=== PATIENT | male | born 1945 | race Caucasian/White ===

== ENCOUNTER 2016-09-02 07:54 | Day surgery (SDC) | payer OTHER ==
--- NOTE | 2016-08-29 08:52 | PCM.ANEPRE ---
Anesthesia Pre-Op Review Reason for Review: SURGEON'S REQUEST-REVIEW CLEARANCES Anesthesia Recommendations: Proceed with Procedure Additional Comments 70 YO Male, 50PY smoking HX quit last year with COPD, REBEKAH on CPAP, Asthma, HTN & Hx of non ST elevation MA in 2014 with Stable CLL. Cleared by Cardiology AND Pulmonology for Surgery. Of Note: 1) Patient does take inhalers for Asthma. Golf Caddy states low to moderate risk for surgery from pulmonary complications. 2) Nurse Educator states Low Cardiac Risk for Surgery 2014: Echo EF = 65% with Trace Aortic and Tricuspid Regurgitation. Kain Sampson MD Aug 29, 2016 08:52
--- NOTE | 2016-08-29 10:45 | PCM.HPSURG ---
Subjective Date of Service: Aug 18, 2016 Referring Provider: Admitting Physician: Primary Care Physician: Other,Physician Attending Physician: Arnaldo Monreal MD Chief Complaint SEE BELOW History of Present Illness Patient: Memo Simeon Date of : 1945 Visit Type: Pre Op Visit Date: 08/18/2016 10:45 AM This 70 year old male presents for Preop Right L4-5 Part Hemilami+Lasha. Lat. Decompression. History of Present Illness: 1. Preop Right L4-5 Part Hemilami+Lasha. Lat. Decompression Memo Simeon is a 70 year old male who presents today's date 08/18/2016 for a preoperative type of appointment concerning the decision for surgery involving minimally invasive surgery involving approach from the right with L4-5 partial hemilaminectomy & bilateral lateral recess decompression secondary to a diagnosis of lumbar spinal stenosis with neurogenic claudication with related complaints of severe, intractable, and debilitating lower back pain radiating to the right lower extremity worse with standing up straight or walking & improved with leaning forward or sitting down. This patient was last evaluated by Dr. Arnaldo Monreal M.D. on June 04, 2016 documenting a four-year history of neurogenic claudication. The patient reports that for years ago while for long distances. His walking is now limited to 2 blocks. As he walks a progression of low back pain and radiating pain into the right lateral leg to the knee in an L5 distribution. The pain becomes intolerable after 2 blocks and that eases up over 5-10 minutes was sitting. He is morbidly obese, has a BMI of 38 and has constant low back pain even when he is sitting. An MRI scan lumbar spine shows severe canal stenosis at the L4-5 level. The patient also reports increased back pain associated with lying flat on his back that eases up if he can turn on his side and flex the lumbar spine. He also obtained relief leaning forward counter, or leaning forward on a shopping cart supermarket. This patient has classic symptoms of neurogenic claudication. According to Dr. Monreal the patient has symptomatic lumbar spinal pathology indicating minimally invasive lumbar spinal decompression surgery. We discussed the risks and benefits associated with the procedure as well as reasonable expectations with regards to surgical outcomes & the patient elected to proceed with surgery as planned. The patient denies any complete or acute loss of control of bowel or bladder function, saddle paresthesia or anesthesia, difficulty with ambulation, balance , coordination, fine motor manipulation or unsteadiness of gate. The patient has a pertinent positive past medical, surgical and social history for right total hip arthroplasty, balloon angioplasty ([employer] Worker unknown), hypertension, morbid obesity, obstructive sleep apnea (sleep study still pending ), coronary artery disease, chronic lymphocytic leukemia (reported in remission) , COPD (Dr. [employer]), nocturia, & possible PTSD (). The patient's related complaints have been a serious detriment to their happiness and activities of daily living. Having failed conservative treatment the patient presents today for their decision for surgery appointment involving minimally invasive surgery involving approach from the right with L4-5 partial hemilaminectomy & bilateral lateral recess decompression for treatment of lumbar spinal stenosis with neurogenic claudication; related to severe, intractable, and debilitating lower back pain radiating to the right lower extremity worse with standing up straight or walking & improved with leaning forward or sitting down. The procedure is scheduled to be performed by Dr. Arnaldo Monreal M.D. on 09/02/2016. ANESTHESIA NOTE: We have requested an anesthesia consultation with regards to the patient's multiple comorbidities requesting review of Cardiologists & Primary Care Provider medical clearance documentation for surgery. We will also have to notify the hospital staff that the patient has a BMI of 38 & is 314 pounds therefore we will have to plan for appropriate equipment accordingly. PHYSICAL EXAM: This is a well developed, well nourished, morbidly obese male who is alert, cooperative, and appears to be in no acute distress with language and speech that is intact and fluent. There is no evidence of recent or remote memory impairment. The patient's knowledge is appropriate for age and level of education with a pleasant affect & euthymic mood. The patient ambulates with mild difficulty & hunched forward gait. Exam of the head is normocephalic. PERRL, EOMI, without facial droop, hearing grossly intact, nostrils patent, oral cavity and pharynx normal. Exam of the neck supple, without lymphadenopathy or thyromegaly. Exam or the heart reveals regular rate and rhythm without audible murmurs The lungs are clear to auscultation bilaterally The abdomen is non- tender and non-distended Exam of the cervical spine reveals that the skin is grossly intact and without gross deformity, or asymmetry of spinal muscles, full range of motion causing no pain or tenderness to palpation. Negative Spurling, negative L'hermitte's and negative distraction. Tone: Intact in the upper and lower extremities. Exam of the right upper extremity reveals that the skin is grossly intact with no significant deformity or joint abnormality. Strength in the deltoids, biceps , triceps, wrist extensors, wrist flexors, and intrinsic is rated 5/5. There is normal gross sensation to pinprick & light touch. Radial pulse is intact. Tinel's & Phalen's are negative with no tenderness over cubital tunnel. DTRs: Biceps 2 +, triceps 2 +, brachioradialis 2 +. Exam of the left upper extremity reveals that the skin is grossly intact with no significant deformity or joint abnormality. Strength in the deltoids, biceps , triceps, wrist extensors, wrist flexors, and intrinsic is rated 5/5. There is normal gross sensation to pinprick & light touch. Radial pulse is intact. Tinel's & Phalen's are negative with no tenderness over cubital tunnel. DTRs: Biceps 2 +, triceps 2 +, brachioradialis 2 +. Exam of the thoracic and lumbar spine reveals the skin is grossly intact without gross deformity, or asymmetry of spinal muscles, decreased range of motion causing significant pain worse with extension & positive inferior lumbar bilateral paraspinal tenderness to palpation without muscular fasciculations appreciated. Exam of the right lower extremity reveals right YOSELIN scar healed no significant deformity or joint abnormality. Strength in the hip flexors, quadriceps, gastrocnemius, tibialis anterior, and extensor hallucis longus is rated 5/5. There is normal gross sensation to pinprick & light touch. There is no edema. Peripheral pulses are intact. No obvious varicosities. Negative straight leg raise and negative Fabers/Patricks. DTRs: Patellar 0, cross adductor 2 +, & achillies 2 +. Exam of the left lower extremity reveals that the skin is grossly intact with no significant deformity or joint abnormality. Strength in the hip flexors, quadriceps, gastrocnemius, tibialis anterior, and extensor hallucis longus is rated 5/5. There is normal gross sensation to pinprick & light touch. There is no edema. Peripheral pulses are intact. No obvious varicosities. Negative straight leg raise and negative Fabers/Patricks. DTRs: Patellar 0, cross adductor 2 +, & achillies 2 +. CNII-XII, mupqoa-ma-wgso, qwhy-pv-cfmd & rapid alternating movements in the upper & lower extremities is grossly intact. There is negative Romberg's, bilateral jarred's, clonus, and babinski's. Medical/Surgical/Interim History Reviewed, no change. Last detailed document date:08/18/2016. Family History: Reviewed, no changes. Last detailed document date:08/18/2016. Social History (Reviewed, updated) 08/18/2016 Tobacco use reviewed. Preferred language is Dutch. The patient does not need an sample carrier. Smoking status: Former smoker. Smoking Status Use Status Type Smoking Status Years Used Total Pack Years no/never Former smoker CAFFEINE The patient uses caffeine: coffee - 2 cups a day. Allergies: Ingredient Reaction Medication Name Comment NO KNOWN ALLERGIES Reviewed, no changes. Review of Systems System Neg/Pos Details Positive Nocturia. Respiratory Positive Dyspnea. MS Positive Back pain, Myalgia. Psych Negative Anxiety and depression. Endocrine Negative Weight gain and weight loss. ENMT Negative Hearing loss. Cardio Negative Chest pain, irregular heartbeat/palpitations, leg swelling and pacemaker. GI Negative Abdominal pain, constipation, diarrhea, nausea and vomiting. MS Negative Bone/joint symptoms and muscle weakness. Constitutional Negative Chills and fever. Jeyson/Lymph Negative Blood clots. Respiratory Negative Apnea and wheezing. Eyes Negative Double vision and vision loss. Negative Dysuria, urge incontinence and urinary incontinence. Integumentary Negative Mrsa and rash. Neuro Negative Dizziness, headache and seizures. Vital Signs Height Time ft in cm Last Measured Height Position % 10:21 AM 6.0 4.00 193.04 06/23/2016 Weight/BSA/BMI Time lb oz kg Context % BMI kg/m2 BSA m2 10:21 AM 306.40 138.981 dressed with shoes 37.30 2.73 Blood Pressure Time BP mm/Hg Position Side Site Method Cuff Size 10:21 AM 142/92 sitting left wrist automatic adult Temperature/Pulse/Respiration Time Temp F Temp C Temp Site Pulse/min Pattern Resp/ min 10:21 AM 97.4 36.3 100 regular Pain Scale Time Pain Score Method 10:21 AM 5/10 Numeric Pain Intensity Scale Measured By Time Measured by 10:21 AM Gena Trujillo MA Screening Summary:o The following were reviewed: tobacco use, alcohol use and caffeine use Assessment/Plan # Detail Type Description 1. Assessment Lumbar stenosis with neurogenic claudication (M48.06). 2. Assessment Preoperative examination (Z01.818). Patient Plan We including your Attending Surgeon have discussed the risks and benefits associated your scheduled procedure which you have verbally acknowledged understanding including but not limited to the possibility of an outcome that we are unable to predict or was not mentioned. 1. You are scheduled for a minimally invasive surgery involving a portion the right with L4-5 partial hemilaminectomy & bilateral lateral recess decompression with Dr. Arnaldo Monreal M.D. at [facility] on 2016. 2. Check in time is 9 AM. Also please ignore instructions below if told otherwise by your preadmission nurse or if you do not take the medications listed below. 3. Nothing to eat after midnight the night before surgery. You may take all of your "approved" medications with small sips of water. Remember to take your a.m. hypertension medication if it is a beta yobany and ends in "olol. Otherwise ask your doctor if you need to hold your a.m. hypertension medication. 4. No aspirin, ibuprofen, Naprosyn, or other NSAIDs starting 7 days prior to surgery. 5. Please stop Warfarin/Coumadin or other blood thinners such as Plavix, Aggrenox, or Xarelto 7 days prior to your surgical procedure and follow specific instructions from your prescribing provider. 6. Please stop Lovenox bridging in the morning one day prior to procedure. 7. Please stop Suboxone/Buprenorphine at least 4 days prior to procedure. 8. Go to the hospital today to get her preoperative testing done. Take the order form to the surgery desk on the second floor of the [facility] (main entrance next to the emergency entrance). I will notify you if there is any test results that require further workup prior to surgery. 9. Follow the instructions you were given today, use the cleansing cloths the night before as well as the morning of her surgery. 10. If you are prescribed inhalers, CPAP or BiPAP machines you use at home bring along with you to the hospital. 11. ONLY If you take medications for Diabetes: If you have an insulin pump continue lowest (typically night-time) basal rate into the a.m. If you do not have a pump check h your a.m. blood sugar and hold insulin if BS less than 100. If you are taking long-acting, intermediate acting (NPH) or 70/30 preparation : Take half on day of procedure. If you are taking ultra long-acting insulin such as glargine, Lantus either at night or in the a.m. continue as scheduled ( including day of surgery). If you take short acting regular insulin (insulin not delivered via pump) discontinue on day of procedure. 12. Please call if you have any questions before your surgery: [phone]. Today's instructions/counseling include(s) Pre-operative instructions given to the patient and or legal field support representative(s) orally and in writing. 13. Our office will contact you if there are any test results that require further workup prior to surgery. Provider Plan The patient's history and examination as well as radiological findings were reviewed with Dr. Arnaldo Monreal M.D. and conveyed the patient in detail. The findings are consistent with lumbar spinal stenosis with neurogenic claudication and are most likely the cause of the patient's severe, intractable , and debilitating lower back pain radiating to the right lower extremity worse with standing up straight or walking & improved with leaning forward or sitting down. The patient has failed extensive conservative treatment for this condition. The treatment options were discussed with the patient. The options include attempt to live with the condition, reattempt conservative treatment, try a pain management intervention / injection or consider a surgical intervention. We are not extremely optimistic that further conservative treatment, pain management intervention and/or injection will adequately resolve the patient's symptoms of severe, intractable, and debilitating lower back pain radiating to the right lower extremity worse with standing up straight or walking & improved with leaning forward or sitting down. Therefore we recommend minimally invasive surgery involving a portion the right with L4-5 partial hemilaminectomy & bilateral lateral recess decompression. The patient was provided/offered educational materials pertaining to their diagnosis and the above discussed procedure. We discussed the risks and benefits associated with this surgery. A spine model was used to explain the nature of this type of surgery. The risk of the required anesthesia was also mentioned including but not limited to organ failure such as heart attack, pneumonia and stroke even . The risk of this type of surgery was also mentioned. Including but not limited to an unsuccessful outcome, residual symptoms, referred or radiating posterior spinal myofascial inflammatory pain or spasm, post operative instability, instrumentation failure, sensory changes, blood loss, blood clots, wound infection, spinal cord or nerve damage, CSF or lymph leak, damage to neighboring structures such as the abdominal vasculature, bowel, ureter, and bladder, resulting in temporary or permanent dysfunction, even disability, paralysis, and . The recovery of this type of surgery was also mentioned. The chances for improvement of the related neurogenic claudication symptomatology at one year is 70-80%. The chances of improvement of local mechanical lower back pain is 50%. The patient verbalized understanding all the risks and benefits, knowing that it is impossible to predict or guarantee every surgical outcome; and would like to proceed with the above discussed procedure anyways. Surgery is scheduled for 09/02/2016 The standard [facility] preoperative screening tests, medicine restrictions, and logistical protocols apply. Any preoperative testing is within normal limits to undergo the above discussed procedure unless otherwise noted in the medical record. ANESTHESIA NOTE: We have requested an anesthesia consultation with regards to the patient's multiple comorbidities requesting review of Cardiologists & Primary Care Provider medical clearance documentation for surgery. We will also have to notify the hospital staff that the patient has a BMI of 38 & is 314 pounds therefore we will have to plan for appropriate equipment accordingly. Medications (added, continued or stopped this visit): Start Date Medication Directions Stop Date amlodipine 10 mg tablet take 1 tablet by oral route every day aspirin 81 mg chewable tablet chew 1 tablet by oral route every day atorvastatin 80 mg tablet take 1 tablet by oral route every day azithromycin take 1 tablet by oral route every day for 1 day then 1 tablet ( 250 mg) by oral route once daily for 4 days 08/18/2016 cyclobenzaprine 5 mg tablet take 1-2 tablet by oral route every 8 hours as needed for spasm lisinopril 5 mg tablet take 1 tablet by oral route every day metoprolol tartrate 25 mg tablet take 1 tablet by oral route every day 08/18/2016 Percocet 5 mg-325 mg tablet take 1 - 2 tablet by oral route every 4 - 6 hours as needed for pain prednisone 20 mg tablet take 1 tablet by oral route every day ProAir HFA 90 mcg/actuation aerosol inhaler inhale 2 puff by inhalation route every 4 - 6 hours as needed Counseling/Educational Factors: Counseling / educational factors reviewed. Counseling / educational factors reviewed. This is a visit of 60 minutes. 50 minutes were spent counseling. This document may have been created using voice recognition software or other electronic means and may contain inadvertent groundskeeper errors. Provider: Wes DILA 08/18/2016 12:34 PM Document generated by: Wes Alberts 08/18/2016 12:34 PM CC Providers: None Selected PCP [facility] [place] [place] [address] w w w . s r c l i n i c s . o r g Allergy Allergies: Coded Allergies: No Known Allergies (Unverified , 08/28/16) Social History Hx Alcohol Use: No Hx Substance Use: No PMH HEENT History History of ENT Problems?: No Cardiovascular History History of Heart Problems?: Yes Cardiovascular History: Positive for:: Cardiac Surgery (HEART CATH 06/2014) Chest Pain (06/2014 NSTEMI) Coronary Artery Disease (HEART CATH-EF 65%,80% STENOSIS DISTAL LAD) Hypertension (HYPERLIPIDEMIA) Denies:: Heart Murmur (ECHO 05/2016 EF 60%) Valvular Heart Disease Other Cardiac History: ACTIVITY >4 METS Respiratory History of Respiratory Problem: Yes Respiratory History: Positive for:: COPD (SEES DR. German FORTUNE/JARRETT) Dyspnea (SOB) Use of C-PAP Machine ( REBEKAH+ W/ CPAP) Neurological History Hx Neurologic Problems?: No Gastrointestinal History HX of GI Problems?: No Genitourinary History Hx of Gu Problems?: Yes Other Pertinent History?: C/OF NOCTURIA Female/Male History Reproductive History Male: Denies: Prostate Problems Scrotal Mass Skin History Skin History: Denies:: History Skin Disorders? Pressure Ulcers Musculoskeletal History Hx Musculoskeletal Problems?: Yes Musculoskeletal History: Positive for:: Degenerative Joint Joint Replacement (S/P RT YOSELIN) Osteoarthritis Psycho Social History Hx of Psycho/Social Problems?: Yes Psycho Social History: Positive for:: Anxiety (PTSD) Other History Hx Any Other Health Problems?: Yes Other History: Positive for:: Cancer (CLL-DX IN 2010; NO TREATMENT) Hospitalization (CARDIAC) Denies:: Endocrine Disease Thyroid Disease Diabetes: No Social History Hx Alcohol Use: NoHx Substance Use: No Wes Alberts PA-C Aug 29, 2016 10:45
[2016-09-02] VITALS (9 sets, daily range): BP systolic 100–145; BP diastolic 51–85; PULSE 66–72; RESP 16–20; O2SAT 93–97
[~2016-09-02] VITALS: Ht 194.3 cm; Wt 138.6 kg
[~2016-09-02 07:54] MED LIST: ALBU8.5H2 INHALATION; AMLO10TA3 PO; ASPI-973 PO; ATOR80TA PO; AZIT250T4 PO; Bacitracin 50,000 unit Inj IRRIGATION ONE; Bupivacaine Liposome 1.3% 20 mL Inj INFILTRATE ONE; CYCL5TAB PO; CeFAZolin Inj 3 GM in IV Premix 1 EACH IV ONE; LISI-571 PO; METO25TA6 PO; OXYC1TAB24 PO; PRE20 PO
[2016-09-02] MEDS ORDERED: EPHEDrine/NS 5 mg/mL 5 mL Syringe ONE (07:55)
[2016-09-02] MEDS ORDERED: Ondansetron 2 mg/mL 2 mL Inj ONE (07:55)
[2016-09-02] MEDS ORDERED: Succinylcholine Chloride 20 mg/mL 5 mL Inj ONE (07:55)
[2016-09-02] MEDS ORDERED: Propofol 10,000 mCg/mL 20 mL Inj ONE (07:55)
[2016-09-02] MEDS ORDERED: Rocuronium 10 mg/mL 5 mL Inj ONE (07:55)
[2016-09-02] MEDS ORDERED: Phenylephrine 10,000 mCg/mL Inj ONE (07:55)
[2016-09-02] MEDS ORDERED: fentaNYL-PF 50 mCg/mL 2 mL Inj ONE (07:55)
[2016-09-02] MEDS ORDERED: Lidocaine PF 1% 30 mL Inj ONE (07:55)
[2016-09-02] MEDS ORDERED: Phenylephrine/NS 100 mCg/mL 10 mL Syringe IVPUSH ONE (07:55)
[2016-09-02] MEDS: Lactated Ringer's 1,000 ML IV SCH ×2 (08:04→08:59)
[2016-09-02] MEDS ORDERED: IBUPROFEN PO (08:07)
--- NOTE | 2016-09-02 08:16 | PCM.HPANE ---
Patient Data Surgeon Admitting Provider: Attending Provider:Arnaldo Monreal MD Primary Care Physician:Other,Physician Other Provider:Mu Ugalde Anesthesia Reason for Visit Lumbar Stenosis With Neurogenic Claudication Ht/WT & BMI Height (Feet): 6 Height (Inches): 4 Weight (Kilograms): 138.981 Body Mass Index 37.00 Allergies Coded Allergies: No Known Allergies (Unverified , 08/28/16) Past Anesthesia History Anesthesia History: Denies:: Anesthesia Reactions, Malignant Hyperthermia Diabetes History Hx Diabetes?: No MRSA MRSA: No Medications Blood Thinner: Aspirin Hypertension Medication: Yes (AMLODIPINE,LISINOPRIL) Home Meds Incl Beta Andrea: Yes Date Beta Andrea Taken: Sep 02, 2016 Time Beta Andrea Taken: 0630 Reported Medications [Ibuprofen] No Conflict [id number] Mg PO PRN #60 09/02/16 oxyCODONE-Acetaminophen 5-325 mg 1 Each Tablet1-2 Tab PO Q4-6H PRN For Pain Ref 0 08/28/16 Metoprolol Tartrate 25 Mg Humgvh78 Mg PO DAILY 30 Days Ref 0 08/28/16 Lisinopril 5 Mg Tablet5 Mg PO DAILY #30 TABLET Ref 0 08/28/16 Cyclobenzaprine 5 Mg Tablet5-10 Mg PO TID PRN Spasm 08/28/16 Aspirin 81 Mg Exlubc20 Mg PO DAILY Ref 0 08/28/16 Amlodipine 10 Mg Zupezg58 Mg PO DAILY Ref 0 08/28/16 Discontinued Reported Medications Albuterol HFA (Proair HFA)8.5 Gm Hfa.aer.ad2 Puffs INHALATION Q4H PRN PRN #1 INHALER 08/28/16 Prednisone (PredniSONE)20 Mg Ztrihe97 Mg PO DAILY Ref 0 08/28/16 Azithromycin (Zithromax (Z-Perry))250 Mg [id number] Mg PO DIRECTED #6 TABLET Ref 0 Take two tablets by mouth on day 1, then take one tablet daily on days 2 through 5. 08/28/16 Atorvastatin (Lipitor)80 Mg Wzmcnj64 Mg PO DAILY Ref 0 08/28/16 History History of ENT Problems?: No Hx of Heart Problems?: Yes Cardiovascular History: Positive for:: Cardiac Surgery (HEART CATH 06/2014) Chest Pain (06/2014 NSTEMI) Coronary Artery Disease (HEART CATH-EF 65%,80% STENOSIS DISTAL LAD) Hypertension (HYPERLIPIDEMIA) Denies:: Heart Murmur (ECHO 05/2016 EF 60%) Valvular Heart Disease Other Cardiac History: ACTIVITY >4 METS Hx of Respiratory Problem?: Yes Respiratory History: Positive for:: COPD (SEES DR. German FORTUNE/JARRETT) Dyspnea (SOB) Use of C-PAP Machine ( REBEKAH+ W/ CPAP) Hx Neurologic Problems?: No Hx of GI Problems?: No Hx of Problems?: Yes Other Pertinent History: C/OF NOCTURIA Male Hx: Denies:: Prostate Problems Scrotal Mass Testicular Surgery Skin History: Denies:: History Skin Disorders? Pressure Ulcers Hx Musculoskeletal Problems?: Yes Musculoskeletal History: Positive for:: Degenerative Joint Joint Replacement (S/P RT YOSELIN) Osteoarthritis Hx of Psycho/Social Problems?: Yes Psycho Social History: Positive for:: Anxiety (PTSD) Hx Surgeries?: Yes (HEART CATH,RT YOSELIN) Hx Any Other Health Problems?: Yes Other History: Positive for:: Cancer (CLL-DX IN 2010; NO TREATMENT) Hospitalization (CARDIAC) Denies:: Endocrine Disease Thyroid Disease History Blood Transfusions: Denies:: Blood Transfusions Hx Diabetes: No Hx Alcohol Use: NoHx Substance Use: NoHave You Smoked inLast 12 mo: NoApprox How Many Cigarettes/day: 50 PK/YR/HX Stop/Bang S-Snoring: Do You Snore Loudly: Yes T-Tired: feel tired, fatigued: Yes O-Obsered: Observed not breath: No P-Blood Pressure: treated: Yes B- Body Mass Index > 35 kg/m2: Yes A- Age over 50: Yes N- Neck Large Circumference: Yes G- Gender Male: Yes REBEKAH Total Score: 7 Risk Assessment Category Category 1A: Patient has history of documented sleep apnea, and HAS NOT received any narcotic, sedative or anesthesia administration during this stay. Category 1B: Patient has history of documented sleep apnea, and HAS received any narcotic , sedative or anesthesia administration during this stay Category 2: Patient has SUSPECTED Obstructive Sleep Apnea, and HAS received any narcotic , sedative or anesthesia administration during this stay. Category 3: Patient has SUSPECTED Obstructive Sleep Apnea and HAS NOT received narcotic, sedative or anesthesia administration during this stay. Category 4: Outpatient in Procedural Areas with known sleep apnea or who screen positive for High Risk via the STOP/BANG questionnaire. Exam Exam General Appearance: Alert, Oriented X3, Cooperative, No Acute Distress HEENT/AIRWAY: MP 2, MP 3, Other (upper denture) Lungs: Diminished, Other (sob when laying on his side. reports his breathing is improved or at baseline. walks up ramp at wo sob) Heart: Regular Rate/Rhythm Meds/Labs/Diagnostics Admission Meds Current Medications Lactated Ringer's (Lr) 1,000 ml @ 120 mls/hr Q8H20M IV Last administered on t 08:04; Start 09/02/16 at 05:00; Stop 09/02/16 at 13:19 Plan Impression Patient chart reviewed, patient interviewed and anesthestic plan with risks, benefits, and alternatives discussed, and informed consent obtained. NPO Status: 09/01/16 ASA Physical Status: ASA3 Severe Disease Anesthetic Plan: GA Bene/Risks/Altern/Consents: Yes HP Complete Prior to Induction: Yes Myra Freitas DO Sep 02, 2016 08:16
[2016-09-02] MEDS ORDERED: Thrombin Powder 5,000 Unit TOPICAL ONE ×3 (08:29→10:03)
[2016-09-02] MEDS ORDERED: HYDROmorphone 1 mg/mL Inj IVPUSH PRN ×2 (08:50→11:50)
[2016-09-02] MEDS ORDERED: fentaNYL-PF 50 mCg/mL 2 mL Inj IVPUSH PRN (08:50)
[2016-09-02] MEDS ORDERED: EPHEDrine Sulfate 50 mg/mL Inj IVPUSH PRN (08:50)
[2016-09-02] MEDS ORDERED: Lactated Ringer's 500 ML IV PRN (08:50)
[2016-09-02] MEDS ORDERED: Phenylephrine 10,000 mCg/mL Inj IVPUSH PRN (08:50)
[2016-09-02] MEDS ORDERED: Lactated Ringer's 1,000 ML IV SCH (08:50)
[2016-09-02] MEDS ORDERED: MetoCLOpramide 5 mg/mL 2 mL Inj IVPUSH PRN ×2 (08:50→11:50)
[2016-09-02] MEDS ORDERED: Ondansetron 2 mg/mL 2 mL Inj IVPUSH PRN ×2 (08:50→11:50)
[2016-09-02] MEDS ORDERED: FURO-129 PO (09:02)
[2016-09-02] MEDS ORDERED: Bacitracin 50,000 unit Inj XX ONE ×2 (10:02)
--- NOTE | 2016-09-02 10:02 | DRSVH ---
PROCEDURE: X-RAY LUMBAR SPINE, 2 OR 3 VIEW INDICATIONS: L4-L5 MINIMALLY INVASIVE LAMINECTOMY TECHNIQUE: One views of the lumbar spine were acquired. COMPARISON: None. FINDINGS: Bones: Intraoperative localization shows a metallic plate overlying the L4-5 disc level posteriorly. IMPRESSION: Intraoperative localization at L4-5. Report called to surgery at 1000 hrs. on 09/02/2016 a nd image appropriately labeled Dictated by: Aleksandr Smart M.D. on 09/02/2016 at 9:58 Approved by: Aleksandr Smart M.D. on 09/02/2016 at 10:00
[2016-09-02] MEDS ORDERED: Gelatin Sponge 12-7 MM TOPICAL ONE ×2 (10:03)
[2016-09-02] MEDS ORDERED: Bupivacaine-MPF 0.5% 30 mL Inj INJ ONE ×2 (10:03)
[2016-09-02] MEDS ORDERED: Bupivacaine Liposome 1.3% 20 mL Inj INFILTRATE ONE ×2 (10:04)
[2016-09-02] MEDS ORDERED: Sodium Chloride Bacteriostatic 30 mL Inj INJ ONE ×2 (10:05)
[2016-09-02] MEDS ORDERED: Lactated Ringer's 1,000 ML IV ONE (11:05)
--- NOTE | 2016-09-02 11:35 | PCM.DISURG ---
Surgical Discharge Instruction Date of Service Sep 02, 2016 Dates of Hospitalization Date of Hospital Admission Outpatient with a bed status home today through day surgery Providers Admitting Physician: Primary Care Physician: Other,Physician Attending Physician: Arnaldo Monreal MD Discharge Diagnosis Discharge Diagnosis Status post right minimally invasive L4-5 partial hemilaminectomy & bilateral lateral recess decompression Post Operative diagnosis Status post right minimally invasive L4-5 partial hemilaminectomy & bilateral lateral recess decompression Additional Instructions Discharge Instructions Minimally Invasive Lumbar Spinal Decompression Surgery Instructions What is my recovery like? Patient's usually go home the same day of surgery. A lumbar brace is worn for comfort only. What are my restrictions? You should not lift anything heavier than five pounds. You should not perform any excessive bending from the waist or twisting movements. Can I Shower? You may shower when you go home. You must remove the outside dressing on the 7th day after surgery, or change as needed if soiled or saturated (replacing new sterile gauze & water proof dressing) otherwise leave alone. The remaining small pieces of tape (steri-strips) directly on top of the incision may get wet. The steri-strips will fall off on their own. Can I drive? No, you should not drive until specifically given permission from your Doctor in a follow up appointment. Most Patient's can drive in 2-3 weeks if they are not taking narcotic pain medications or muscle relaxers. You may ride in a car, but should avoid trips longer than two hours in duration. When can I return work / sports? Your Doctor will discuss your return to work with you on your first postoperative follow-up appointment. Most patients may return to work within 2 weeks for sedentary jobs. More physically demanding jobs may require 3-6 months of healing before such work can be considered. When should I call the doctor? You should call your Doctor or go to the Emergency Department if you develop chest pain, shortness of breath, a temperature greater than 101.5 F, severe uncontrolled pain or weakness, loss of bowel or bladder function, choking, lots or drainage, pus discharge or constipation. Instructions Regarding Comfort & Pain Medication Use: During the recovery period , even with the use of pain medication, you may experience pain at the site of surgery. You may also have the same type of pain you had before surgery. Please use your pain scale as a guide for taking your pain medication. When your pain is greater than 4 out of 10, or when your pain reaches your personal tolerable level of pain, take your pain medication as prescribed. Use your pain medication on an 'as needed' basis. This means if your pain level is within your tolerable level of pain you DO NOT need to take the medication. As you get better, you will notice you can increase the time interval between doses and decrease the number of tablets you are taking, gradually taking less and less pain medication. Taking pain medication when it is not necessary (for example when your pain is tolerable or acceptable) can result in dangerous side effects and over- sedation. Signs and symptoms of over-sedation include: drowsiness, excessive sleeping, slow or difficult breathing, slurred speech, impaired thinking, confusion, impaired motor coordination. If you have any of these symptoms stop taking the medication and immediately contact your doctor. IF SYMPTOMS ARE LIFE THREATENING CALL 911. To decrease pain and swelling, frequently apply an ice pack for 20 min intervals with at least one hour off. When to take Acetaminophen for pain? If you don't have liver problems, allergies and/or Tylenol is not in your current pain medication. Take Extra Strength Tylenol 500mg 2 tabs by mouth every 6 hours as needed for pain. DO NOT EXCEED 8 TABS PER DAY. Use your CPAP whenever indicated. Follow Up Plan Follow Up Plan Follow-up with physician desk assistant in outpatient neurosurgical clinic in 1 week for wound check. Follow-up Provider (F9): Wes Alberts PA-C Additional Information Attending Statement All documentation reviewed & orders authorized by Vic Tompkins Scott PA-C Sep 02, 2016 11:35
[2016-09-02] MEDS ORDERED: Sodium Biphos-Phos 133 mL Enema RECTAL PRN ×2 (11:40→11:50)
[2016-09-02] MEDS ORDERED: Magnesium Hydroxide 10 mL Oral Concentration PO PRN ×2 (11:40→11:50)
[2016-09-02] MEDS ORDERED: Polyethylene Glycol (PEG) 17 Gm Powder PO PRN ×2 (11:40→11:50)
[2016-09-02] MEDS ORDERED: Senna-Docusate 8.6-50 mg Tablet PO PRN ×2 (11:40→11:50)
[2016-09-02] MEDS: 0.9% Sodium Chloride 1,000 ML IV SCH ×2 (11:46→19:03)
--- NOTE | 2016-09-02 13:07 | PCM.ANEP1 ---
Post Anesthesia Phase 1 PACU Phase 1 Assessment Date of Service: Aug 18, 2016 Vital Signs Vital Signs Date Time Temp Pulse Resp B/P Pulse Ox O2 Delivery O2 Flow Rate FiO2 09/02/16 12:21 69 16 100/51 94 Nasal Cannula 2 09/02/16 12:12 36 67 16 109/61 95 Nasal Cannula 2 09/02/16 12:00 68 20 109/61 93 Nasal Cannula 4 09/02/16 11:45 70 18 104/63 93 Room Air 09/02/16 11:40 72 20 102/61 97 Simple Mask 10 09/02/16 11:33 36.5 71 18 104/61 97 Simple Mask 10 09/02/16 08:20 CPAP/BIPAP 09/02/16 08:18 36.8 66 18 145/85 94 Room Air Anesthetic Administered: GA Level of Alertness: Sleepy, easy to arouse ADHIKARI's with Equal Strength: Yes Pain: No Nausea or Vomiting: No Oxygen Delivery: Simple Mask Lungs: Diminished, Other (sob when laying on his side. reports his breathing is improved or at baseline. walks up ramp at wo sob) Myra Freitas DO Sep 02, 2016 13:07
--- NOTE | 2016-09-02 13:08 | PCM.ANEP2 ---
Post Anesthesia Evaluation ASA/CMS Post Anesthesia VS in Patient's Normal Range?: Yes Resp Stable; Airway Patent?: Yes CV Function & Hydration Stable: Yes Mental Status Recovered?: Yes Pain control Satisfactory?: Yes N/V Control Satisfactory?: Yes Myra Freitas DO Sep 02, 2016 13:08
[2016-09-02] MEDS: hydrOXYzine Pamoate 25 mg Capsule PO PRN ×2 (13:14→19:53)
[2016-09-02] MEDS: HYDROcodone-APAP 10-325 mg PO PRN ×2 (13:14→19:53)
[2016-09-02] MEDS ORDERED: CYCLOBENZAPRINE PO PRN (15:00)
--- NOTE | 2016-09-02 15:35 | NUR ---
Admit to floor Pt admitted to floor. A&Ox3. C/o back pain at 5/10 but does not want pain medication right now. Lumbar dressing is CDI. Bed locked in low position and call light within reach. Will continue to monitor.
[2016-09-02] MEDS: Senna-Docusate 8.6-50 mg Tablet PO SCH (19:52)
[2016-09-02] MEDS ORDERED: Senna-Docusate 8.6-50 mg Tablet PO SCH (20:30)
[2016-09-03] MEDS: hydrOXYzine Pamoate 25 mg Capsule PO PRN (00:33)
[2016-09-03] MEDS: HYDROcodone-APAP 10-325 mg PO PRN ×3 (00:34→09:27)
--- NOTE | 2016-09-03 00:34 | OP ---
[address] [address] OPERATIVE REPORT PATIENT: JA LEVIN : 1945 MR#: [id number] ADMIT: 09/02/2016 JOB ID: [id number] DATE OF SURGERY: 09/02/2016 PREOPERATIVE DIAGNOSIS(ES): Lumbar spondylosis, canal stenosis with neurogenic claudication and right L5 radiculopathy. POSTOPERATIVE DIAGNOSIS(ES): PROCEDURE: MIS right L4-5 partial hemilaminectomy with bilateral lateral recess decompression. SURGEON: First flight communications operator: Arnaldo Monreal MD. PHYSICAL DIRECTOR: Wes Alberts PA-C. ANESTHESIA: General with Dr. Myra Freitas DO. ESTIMATED BLOOD LOSS: 25 cc. DRAINS: None. COMPLICATIONS: None. INDICATIONS: This patient had severe spondylosis, canal stenosis and lateral recess stenosis. He presented with neurogenic claudication and a right L5 radiculopathy. He had been refractory to medical management. PROCEDURE IN DETAIL: The patient was taken to the operating room on September 02, 2016, placed under general anesthesia, placed prone on a Roger frame, prepped and draped sterile. A spinal needle was used as a marker and placed along the spinous process of L4. This was confirmed with a lateral image taken with the C-arm. The skin was infiltrated with 0.5% plain Marcaine. A 2 cm incision was placed just to the right of midline at the L4-5 level. The incision was carried down sharply through the skin and subcutaneous tissues. Hemostasis was achieved with monopolar. Progressive dilators were then placed on the right side at L4-5 under fluoroscopic guidance. An operating tube measuring 22 mm in diameter and 7 cm in length was placed over the dilator tubes on the right side at the L4-5 level. The operating tube was then attached to the side rail of the table with connecting arm. An AP and lateral fluoroscopic image confirmed that this tube was placed at the L4-5 level on the right side. The microscope was then brought into position siting down the tube. The soft tissue overlying the lamina of L4 and L5 was cauterized. The patient had a partial hemilaminectomy of L4 along the caudal aspect, thinning with the high-speed bur and undermining with the Kerrison punch. Similarly, the patient had a partial hemilaminectomy of L5, thinning the most cephalad portion of the lamina with the high-speed bur and undermining with the Kerrison punch. The ligamentum flavum was removed and the patient had a lateral recess decompression removing the most medial aspect of the right L4-5 facet. This decompressed the right L5 root. It was then possible to work across from the right side decompressing the lateral recess on the left side, removing thickened ligament and decompressing the lateral recess on the left side at the L4-5 level. Following the decompression, Gelfoam was left in the partial hemilaminectomy defect. The operating tube was removed and 0-Vicryl was used to close the dorsolumbar fascia. The patient received an injection of dilute Exparel into the paraspinous musculature and additional Exparel into the subcutaneous tissues and the dermal layer. The subcutaneous tissues were closed with interrupted sutures of 2-0 Vicryl and the skin was closed with 4-0 Vicryl using a subcuticular stitch. Steri-Strips were applied to the skin, which was dressed with Telfa, gauze, and tape. GERRY
[2016-09-03 00:35] VITALS: BP 106/71; PULSE 69; RESP 18; O2SAT 94
[2016-09-03] MEDS: 0.9% Sodium Chloride 1,000 ML IV SCH (01:08)
[2016-09-03 07:27] VITALS: BP 98/59; PULSE 76; RESP 20; O2SAT 93
--- NOTE | 2016-09-03 09:09 | PCM.DC.SUR ---
Discharge Summary Date of Service: Sep 03, 2016 Date of Hospital Admission: Medical observation overnight 09/02/2016 Date of Operation(s): 09/02/2016 Date of Discharge: 09/03/2016 Diagnosis at Time of Discharge Status post MIS right L4-5 partial hemilaminectomy with bilateral lateral recess decompression Problems: Operation MIS right L4-5 partial hemilaminectomy with bilateral lateral recess decompression. Brief History and Physical: Patient: Memo Simeon Date of : 1945 Visit Type: Pre Op Visit Date: 08/18/2016 10:45 AM This 70 year old male presents for Preop Right L4-5 Part Hemilami+Lasha. Lat. Decompression. History of Present Illness: 1. Preop Right L4-5 Part Hemilami+Lasha. Lat. Decompression Memo Simeon is a 70 year old male who presents today's date 08/18/2016 for a preoperative type of appointment concerning the decision for surgery involving minimally invasive surgery involving approach from the right with L4-5 partial hemilaminectomy & bilateral lateral recess decompression secondary to a diagnosis of lumbar spinal stenosis with neurogenic claudication with related complaints of severe, intractable, and debilitating lower back pain radiating to the right lower extremity worse with standing up straight or walking & improved with leaning forward or sitting down. This patient was last evaluated by Dr. Arnaldo Monreal M.D. on June 04, 2016 documenting a four-year history of neurogenic claudication. The patient reports that for years ago while for long distances. His walking is now limited to 2 blocks. As he walks a progression of low back pain and radiating pain into the right lateral leg to the knee in an L5 distribution. The pain becomes intolerable after 2 blocks and that eases up over 5-10 minutes was sitting. He is morbidly obese, has a BMI of 38 and has constant low back pain even when he is sitting. An MRI scan lumbar spine shows severe canal stenosis at the L4-5 level. The patient also reports increased back pain associated with lying flat on his back that eases up if he can turn on his side and flex the lumbar spine. He also obtained relief leaning forward counter, or leaning forward on a shopping cart supermarket. This patient has classic symptoms of neurogenic claudication. According to Dr. Monreal the patient has symptomatic lumbar spinal pathology indicating minimally invasive lumbar spinal decompression surgery. We discussed the risks and benefits associated with the procedure as well as reasonable expectations with regards to surgical outcomes & the patient elected to proceed with surgery as planned. The patient denies any complete or acute loss of control of bowel or bladder function, saddle paresthesia or anesthesia, difficulty with ambulation, balance , coordination, fine motor manipulation or unsteadiness of gate. The patient has a pertinent positive past medical, surgical and social history for right total hip arthroplasty, balloon angioplasty (Sausage Wrapper unknown), hypertension, morbid obesity, obstructive sleep apnea (sleep study still pending ), coronary artery disease, chronic lymphocytic leukemia (reported in remission) , COPD (Dr. Cuevas Torch Shearer), nocturia, & possible PTSD (). The patient's related complaints have been a serious detriment to their happiness and activities of daily living. Having failed conservative treatment the patient presents today for their decision for surgery appointment involving minimally invasive surgery involving approach from the right with L4-5 partial hemilaminectomy & bilateral lateral recess decompression for treatment of lumbar spinal stenosis with neurogenic claudication; related to severe, intractable, and debilitating lower back pain radiating to the right lower extremity worse with standing up straight or walking & improved with leaning forward or sitting down. The procedure is scheduled to be performed by Dr. Arnaldo Monreal M.D. on 09/02/2016. ANESTHESIA NOTE: We have requested an anesthesia consultation with regards to the patient's multiple comorbidities requesting review of Cardiologists & Primary Care Provider medical clearance documentation for surgery. We will also have to notify the hospital staff that the patient has a BMI of 38 & is 314 pounds therefore we will have to plan for appropriate equipment accordingly. PHYSICAL EXAM: This is a well developed, well nourished, morbidly obese male who is alert, cooperative, and appears to be in no acute distress with language and speech that is intact and fluent. There is no evidence of recent or remote memory impairment. The patient's knowledge is appropriate for age and level of education with a pleasant affect & euthymic mood. The patient ambulates with mild difficulty & hunched forward gait. Exam of the head is normocephalic. PERRL, EOMI, without facial droop, hearing grossly intact, nostrils patent, oral cavity and pharynx normal. Exam of the neck supple, without lymphadenopathy or thyromegaly. Exam or the heart reveals regular rate and rhythm without audible murmurs The lungs are clear to auscultation bilaterally The abdomen is non- tender and non-distended Exam of the cervical spine reveals that the skin is grossly intact and without gross deformity, or asymmetry of spinal muscles, full range of motion causing no pain or tenderness to palpation. Negative Spurling, negative L'hermitte's and negative distraction. Tone: Intact in the upper and lower extremities. Exam of the right upper extremity reveals that the skin is grossly intact with no significant deformity or joint abnormality. Strength in the deltoids, biceps , triceps, wrist extensors, wrist flexors, and intrinsic is rated 5/5. There is normal gross sensation to pinprick & light touch. Radial pulse is intact. Tinel's & Phalen's are negative with no tenderness over cubital tunnel. DTRs: Biceps 2 +, triceps 2 +, brachioradialis 2 +. Exam of the left upper extremity reveals that the skin is grossly intact with no significant deformity or joint abnormality. Strength in the deltoids, biceps , triceps, wrist extensors, wrist flexors, and intrinsic is rated 5/5. There is normal gross sensation to pinprick & light touch. Radial pulse is intact. Tinel's & Phalen's are negative with no tenderness over cubital tunnel. DTRs: Biceps 2 +, triceps 2 +, brachioradialis 2 +. Exam of the thoracic and lumbar spine reveals the skin is grossly intact without gross deformity, or asymmetry of spinal muscles, decreased range of motion causing significant pain worse with extension & positive inferior lumbar bilateral paraspinal tenderness to palpation without muscular fasciculations appreciated. Exam of the right lower extremity reveals right YOSELIN scar healed no significant deformity or joint abnormality. Strength in the hip flexors, quadriceps, gastrocnemius, tibialis anterior, and extensor hallucis longus is rated 5/5. There is normal gross sensation to pinprick & light touch. There is no edema. Peripheral pulses are intact. No obvious varicosities. Negative straight leg raise and negative Fabers/Patricks. DTRs: Patellar 0, cross adductor 2 +, & achillies 2 +. Exam of the left lower extremity reveals that the skin is grossly intact with no significant deformity or joint abnormality. Strength in the hip flexors, quadriceps, gastrocnemius, tibialis anterior, and extensor hallucis longus is rated 5/5. There is normal gross sensation to pinprick & light touch. There is no edema. Peripheral pulses are intact. No obvious varicosities. Negative straight leg raise and negative Fabers/Patricks. DTRs: Patellar 0, cross adductor 2 +, & achillies 2 +. CNII-XII, djfleg-sd-adug, [id number]-[id number]-wddt & rapid alternating movements in the upper & lower extremities is grossly intact. There is negative Romberg's, bilateral jarred's, clonus, and babinski's. Medical/Surgical/Interim History Reviewed, no change. Last detailed document date:08/18/2016. Family History: Reviewed, no changes. Last detailed document date:08/18/2016. Social History (Reviewed, updated) 08/18/2016 Tobacco use reviewed. Preferred language is Bahraini. The patient does not need an translator/interpreter. Smoking status: Former smoker. Smoking Status Use Status Type Smoking Status Years Used Total Pack Years no/never Former smoker CAFFEINE The patient uses caffeine: coffee - 2 cups a day. Allergies: Ingredient Reaction Medication Name Comment NO KNOWN ALLERGIES Reviewed, no changes. Review of Systems System Neg/Pos Details Positive Nocturia. Respiratory Positive Dyspnea. MS Positive Back pain, Myalgia. Psych Negative Anxiety and depression. Endocrine Negative Weight gain and weight loss. ENMT Negative Hearing loss. Cardio Negative Chest pain, irregular heartbeat/palpitations, leg swelling and pacemaker. GI Negative Abdominal pain, constipation, diarrhea, nausea and vomiting. MS Negative Bone/joint symptoms and muscle weakness. Constitutional Negative Chills and fever. Jeyson/Lymph Negative Blood clots. Respiratory Negative Apnea and wheezing. Eyes Negative Double vision and vision loss. Negative Dysuria, urge incontinence and urinary incontinence. Integumentary Negative Mrsa and rash. Neuro Negative Dizziness, headache and seizures. Vital Signs Height Time ft in cm Last Measured Height Position % 10:21 AM 6.0 4.00 193.04 06/23/2016 Weight/BSA/BMI Time lb oz kg Context % BMI kg/m2 BSA m2 10:21 AM 306.40 138.981 dressed with shoes 37.30 2.73 Blood Pressure Time BP mm/Hg Position Side Site Method Cuff Size 10:21 AM 142/92 sitting left wrist automatic adult Temperature/Pulse/Respiration Time Temp F Temp C Temp Site Pulse/min Pattern Resp/ min 10:21 AM 97.4 36.3 100 regular Pain Scale Time Pain Score Method 10:21 AM 5/10 Numeric Pain Intensity Scale Measured By Time Measured by 10:21 AM Gena Trujillo MA Screening Summary:o The following were reviewed: tobacco use, alcohol use and caffeine use Assessment/Plan # Detail Type Description 1. Assessment Lumbar stenosis with neurogenic claudication (M48.06). 2. Assessment Preoperative examination (Z01.818). Patient Plan We including your Attending Surgeon have discussed the risks and benefits associated your scheduled procedure which you have verbally acknowledged understanding including but not limited to the possibility of an outcome that we are unable to predict or was not mentioned. 1. You are scheduled for a minimally invasive surgery involving a portion the right with L4-5 partial hemilaminectomy & bilateral lateral recess decompression with Dr. Arnaldo Monreal M.D. at [facility] on 2016. 2. Check in time is 9 AM. Also please ignore instructions below if told otherwise by your preadmission nurse or if you do not take the medications listed below. 3. Nothing to eat after midnight the night before surgery. You may take all of your "approved" medications with small sips of water. Remember to take your a.m. hypertension medication if it is a beta yobany and ends in "olol. Otherwise ask your doctor if you need to hold your a.m. hypertension medication. 4. No aspirin, ibuprofen, Naprosyn, or other NSAIDs starting 7 days prior to surgery. 5. Please stop Warfarin/Coumadin or other blood thinners such as Plavix, Aggrenox, or Xarelto 7 days prior to your surgical procedure and follow specific instructions from your prescribing provider. 6. Please stop Lovenox bridging in the morning one day prior to procedure. 7. Please stop Suboxone/Buprenorphine at least 4 days prior to procedure. 8. Go to the hospital today to get her preoperative testing done. Take the order form to the surgery desk on the second floor of the hospital, [facility] (main entrance next to the emergency entrance). I will notify you if there is any test results that require further workup prior to surgery. 9. Follow the instructions you were given today, use the cleansing cloths the night before as well as the morning of her surgery. 10. If you are prescribed inhalers, CPAP or BiPAP machines you use at home bring along with you to the hospital. 11. ONLY If you take medications for Diabetes: If you have an insulin pump continue lowest (typically night-time) basal rate into the a.m. If you do not have a pump check h your a.m. blood sugar and hold insulin if BS less than 100. If you are taking long-acting, intermediate acting (NPH) or 70/30 preparation : Take half on day of procedure. If you are taking ultra long-acting insulin such as glargine, Lantus either at night or in the a.m. continue as scheduled ( including day of surgery). If you take short acting regular insulin (insulin not delivered via pump) discontinue on day of procedure. 12. Please call if you have any questions before your surgery: [phone]. Today's instructions/counseling include(s) Pre-operative instructions given to the patient and or legal product support sales representative(s) orally and in writing. 13. Our office will contact you if there are any test results that require further workup prior to surgery. Provider Plan The patient's history and examination as well as radiological findings were reviewed with Dr. Arnaldo Monreal M.D. and conveyed the patient in detail. The findings are consistent with lumbar spinal stenosis with neurogenic claudication and are most likely the cause of the patient's severe, intractable , and debilitating lower back pain radiating to the right lower extremity worse with standing up straight or walking & improved with leaning forward or sitting down. The patient has failed extensive conservative treatment for this condition. The treatment options were discussed with the patient. The options include attempt to live with the condition, reattempt conservative treatment, try a pain management intervention / injection or consider a surgical intervention. We are not extremely optimistic that further conservative treatment, pain management intervention and/or injection will adequately resolve the patient's symptoms of severe, intractable, and debilitating lower back pain radiating to the right lower extremity worse with standing up straight or walking & improved with leaning forward or sitting down. Therefore we recommend minimally invasive surgery involving a portion the right with L4-5 partial hemilaminectomy & bilateral lateral recess decompression. The patient was provided/offered educational materials pertaining to their diagnosis and the above discussed procedure. We discussed the risks and benefits associated with this surgery. A spine model was used to explain the nature of this type of surgery. The risk of the required anesthesia was also mentioned including but not limited to organ failure such as heart attack, pneumonia and stroke even . The risk of this type of surgery was also mentioned. Including but not limited to an unsuccessful outcome, residual symptoms, referred or radiating posterior spinal myofascial inflammatory pain or spasm, post operative instability, instrumentation failure, sensory changes, blood loss, blood clots, wound infection, spinal cord or nerve damage, CSF or lymph leak, damage to neighboring structures such as the abdominal vasculature, bowel, ureter, and bladder, resulting in temporary or permanent dysfunction, even disability, paralysis, and . The recovery of this type of surgery was also mentioned. The chances for improvement of the related neurogenic claudication symptomatology at one year is 70-80%. The chances of improvement of local mechanical lower back pain is 50%. The patient verbalized understanding all the risks and benefits, knowing that it is impossible to predict or guarantee every surgical outcome; and would like to proceed with the above discussed procedure anyways. Surgery is scheduled for 09/02/[address] [facility] preoperative screening tests, medicine restrictions, and logistical protocols apply. Any preoperative testing is within normal limits to undergo the above discussed procedure unless otherwise noted in the medical record. ANESTHESIA NOTE: We have requested an anesthesia consultation with regards to the patient's multiple comorbidities requesting review of Cardiologists & Primary Care Provider medical clearance documentation for surgery. We will also have to notify the hospital staff that the patient has a BMI of 38 & is 314 pounds therefore we will have to plan for appropriate equipment accordingly. Medications (added, continued or stopped this visit): Start Date Medication Directions Stop Date amlodipine 10 mg tablet take 1 tablet by oral route every day aspirin 81 mg chewable tablet chew 1 tablet by oral route every day atorvastatin 80 mg tablet take 1 tablet by oral route every day azithromycin take 1 tablet by oral route every day for 1 day then 1 tablet ( 250 mg) by oral route once daily for 4 days 08/18/2016 cyclobenzaprine 5 mg tablet take 1-2 tablet by oral route every 8 hours as needed for spasm lisinopril 5 mg tablet take 1 tablet by oral route every day metoprolol tartrate 25 mg tablet take 1 tablet by oral route every day 08/18/2016 Percocet 5 mg-325 mg tablet take 1 - 2 tablet by oral route every 4 - 6 hours as needed for pain prednisone 20 mg tablet take 1 tablet by oral route every day ProAir HFA 90 mcg/actuation aerosol inhaler inhale 2 puff by inhalation route every 4 - 6 hours as needed Counseling/Educational Factors: Counseling / educational factors reviewed. Counseling / educational factors reviewed. This is a visit of 60 minutes. 50 minutes were spent counseling. This document may have been created using voice recognition software or other electronic means and may contain inadvertent buildings and grounds supervisor errors. Provider: Wes DIAL 08/18/2016 12:34 PM Document generated by: Wes Alberts 08/18/2016 12:34 PM CC Providers: None Selected PCP [facility] [place] [address] w w reggie muniz l i n i flavio s Alejandra daugherty g Hospital Course: Hospital Course: The patient was admitted through same day surgery and subsequently underwent a MIS right L4-5 partial hemilaminectomy with bilateral lateral recess decompression. The patient tolerated the procedure well. The patient was then was transferred to PACU and then to day surgery however the patient had likely postanesthesia related unsteadiness with gait & Dr. Monreal authorized overnight observation with physical therapy and reevaluation for discharge in the a.m. The patient was admitted for overnight postoperative pain control, PT/ OT, supervised for REBEKAH, etc. Co-morbidities with CPAP, nurse monitoring, continuous pulse oximetry, and discharge planning. Physical therapy recommended social work arranged home health services & [facility] for discharge this morning. The Patient's overnight course was within normal limits. Currently the patient has complaints of mild surgical site discomfort & improving ambulation with physical therapy. There is significant improvement of the patient's residual neurogenic claudication & lumbar radiculopathy symptoms. The patient had mild hypotension which will be corrected with normal saline IV fluid bolus if needed prior to discharge. The patient denies headache, severe sore throat or dysphagia, chest pain, shortness of breath, abdominal pain, nausea, vomiting, constipation, diarrhea, or any new onset &/or location of pain, weakness or paresthesias aside from the surgical site. PHYSICAL EXAM This is a well developed, well nourished, morbidly obese who is alert, cooperative, and appears to be in no acute distress with a pleasant affect & euthymic mood. Exam of the head is normocephalic. PERRL, EOMI, without facial droop, hearing grossly intact, nostrils patent, oral cavity and pharynx normal. Voice is within normal limits Exam or the heart reveals regular rate and rhythm without audible murmurs The abdomen is obese, non- tender, and non-distended. Exam of the lumbar surgical wound reveals that it is clean, dry, and intact; without signs of infection, inflammation, and/or hematoma. There is no surgical drain in the last 8 hour period. Gross exam of the extremities reveals strength & sensation are grossly intact within the patient's normal baseline limits without any sign of new neuromuscular weakness. The patient was eventually able to get out of bed and ambulate within acceptable limits. Therapy services made recommendations for disposition. Flatus was appreciated and the patient was able to void without significant difficulty. The pain was gradually under control. The patient was afebrile on discharge. The patient's incision(s) was clean, dry and intact. The dressing was changed to the Surgeon's specifications. The patient progressed well with rehabilitation and was subsequently discharged to home with home health services physical therapy & RN arranged in stable condition. The patient verbally affirmed understanding when given clear instruction regarding the postoperative care and follow-up including but not limited to seeking immediate medical attention for chest pain, shortness of breath, oversedation, a temperature greater than 101.5 F, severe uncontrolled pain or weakness, loss of bowel or bladder function, choking, lots or drainage, pus discharge or constipation. All questions were answered. Disposition: Home in stable condition after the patient meets specific parameters and the discharge order. Amlodipine (Amlodipine) 10 Mg Tablet 10 MG PO DAILY (Reported) Cyclobenzaprine (Cyclobenzaprine) 5 Mg Tablet 5-10 MG PO TID PRN PRN Spasm ( Reported) Furosemide (Lasix) 20 Mg Tablet 40 MG PO DAILY (Reported) Metoprolol Tartrate (Metoprolol Tartrate) 25 Mg Tablet 25 MG PO BID (Reported) Discharge Medications: Prescribed and the patient's preoperative appointment and also written on the patient's chart. The patient had mild nausea attempting his postoperative medications prior to surgery on an empty stomach. He was advised to take his pain medications with food & half dose if needed. Additional Information The patient was specifically instructed & verbalized understanding to look out for signs of infection and avoid falls. Attending Statement: All documentation reviewed & orders authorized by Dr. Arnaldo Monreal M.D. Wes Alberts PA-C Sep 03, 2016 09:09
[2016-09-03] MEDS: Senna-Docusate 8.6-50 mg Tablet PO SCH (09:27)
[2016-09-03 09:32] VITALS: BP 109/58; PULSE 85
--- NOTE | 2016-09-03 10:40 | NUR ---
Discharge Pt discharged from unit. Pt's vitals are stable; pt has a walker and ambulated with PT; pt is eating/drinking and voiding; and pt's dressing is CDI. Per Fawad Alberts PA-C, but instructed to not take BP meds until he follows up with his PCP. Provided with information on signs to watch for re: hypotension. Follow up and care instructions reviewed with pt regarding his procedure. Pt knows to follow up with Fawad Alberts in 1 week. Pt's belongings taken with him, including his CPAP. Pt taken off floor in wheelchair and will be driven home by his friend.
--- NOTE | 2016-09-03 11:11 | NUR ---
Social Work Discharge: SW met with patient at bedside to discuss discharge plan. Patient is a 70 year old male admitted for lumbar stenosis with neurogenic claudica. Patient payer as [facility]. Patient has no rn maternity disability insurance nor [place] benefits. Patient states PCP as [facility] Jesus Mcbride in [place]. Patient states residing on a boat in [place] with friend who provides support and care. [facility] [place] [facility]. Patient has no HHC history or SNF history. Patient has no DME at home. Patient has AD dictating daughter Krysatl, as power of assistant city attorney. Patient aware of MD recommendations for a walker and HHC services at discharge. Unit provided patient with jennifer walker. Patient states being in agreement to [facility] services via any in network provider. Patient states choice as [facility]. SW spoke to [facility] rep Kory who was made aware and to obtain face to face. Services to begin 24-48hrs following discharge. Access provided. Patient denied any further discharge needs at this time. SW to follow. PLAN: Home with friend via POV. Return to boat with HHC services via [facility]. Access provided. Walker provided to patient at bedside Enrique GUILLEN
== END 2016-09-03 10:35 | disposition home health service (06) ==
LOC: SAS 07:54 → MOC 15:49 → SAS 09-03 10:35
PROVIDERS: ATTEND Neurological Surgery
DX: M48.06 Spinal stenosis, lumbar region (principal); I10 Essential (primary) hypertension; I25.10 Atherosclerotic heart disease of native coronary artery without angina pectoris; J44.9 Chronic obstructive pulmonary disease, unspecified; M19.90 Unspecified osteoarthritis, unspecified site; F43.10 Post-traumatic stress disorder, unspecified; Z79.899 Other long term (current) drug therapy
CPT/HCPCS: 63047; 72100; 76000; 97162; J0330; J0690; J1170; J2370; J2405; J3010; J7120; Q0177